=== PATIENT | female | born 1995 | race Caucasian/White ===

== ENCOUNTER 2023-02-21 12:26 | Outpatient (CLI) | payer OTHER, SELFPAY ==
[2023-02-21 13:25] LABS: Beta HCG Quantitative 8.32 mIU/ML
== END 2023-02-21 12:27 | disposition home or self-care (01) ==
LOC: ANHLAB 12:28
PROVIDERS: Visit Provider Student in an Organized Health Care Education/Training Program
DX: O20.0 Threatened abortion (principal)
CPT/HCPCS: 36415; 84702

== ENCOUNTER 2023-02-23 09:53 | Outpatient (CLI) | payer OTHER, SELFPAY ==
[2023-02-23 10:37] LABS: Beta HCG Quantitative 2.64 mIU/ML
== END 2023-02-23 09:54 | disposition home or self-care (01) ==
LOC: ANHLAB 09:54
PROVIDERS: Visit Provider Student in an Organized Health Care Education/Training Program
DX: O20.0 Threatened abortion (principal); Z3A.00 Weeks of gestation of pregnancy not specified
CPT/HCPCS: 36415; 84702

== ENCOUNTER 2023-06-15 11:54 | Outpatient (CLI) | payer OTHER, SELFPAY ==
--- NOTE | ~2023-06-15 | US_ITS ---
EXAMINATION: US OB <=14 wk fetus w TV DATE: 06/15/2023 13:02 INDICATION: Threatened . TECHNIQUE: Real-time transabdominal and transvaginal pelvic ultrasound was performed. COMPARISON: Ultrasound 06/05/2023 FINDINGS: TRANSABDOMINAL ULTRASOUND: The uterus measures 11.0 x 6.7 x 3.9 cm. TRANSVAGINAL ULTRASOUND: There is no visible intrauterine gestational sac. The endometrial complex me asures 12 mm in thickness without internal vascular flow on color Doppler. The ovaries are not visual ized. There is no free fluid in the pelvis. IMPRESSION: 1. Thickened endometrial complex suspicious for retained products of conception. Reviewed, dictated and finalized at location A. IMPRESSION: 1. Thickened endometrial complex suspicious for retained products of conceptio n.
== END 2023-06-15 11:55 | disposition home or self-care (01) ==
PROVIDERS: Visit Provider Obstetrics & Gynecology
DX: O20.0 Threatened abortion (principal); R93.89 Abnormal findings on diagnostic imaging of other specified body structures; Z3A.00 Weeks of gestation of pregnancy not specified
CPT/HCPCS: 76801; 76817

== ENCOUNTER → 2023-09-01 12:53 | Outpatient (CLI) | payer OTHER, SELFPAY ==
--- NOTE | ~2023-09-01 | US_ITS ---
EXAMINATION: US OB <=14 wk fetus w TV DATE: 09/01/2023 13:16 INDICATION: Threatened TECHNIQUE: Real-time pelvic ultrasound utilizing both a transvaginal and transabdominal probe was pe rformed. The interpreting radiologist was not present for the study. COMPARISON: None. FINDINGS: The uterus measures 8.0 x 5.7 x 4.2 cm. Endometrial complex measures 10 mm in thickness. There is no evident intrauterine gestational sac. There is a small amount of anechoic fluid within the endocervic al canal and the caudal-most aspect of the endometrial canal of the lower uterine segment. The right ovary measures 1.9 x 1.6 x 1.5 cm. The left ovary measures 2.1 x 1.6 x 2.0 cm. 1.6 cm anech oic likely corpus luteum cyst within the left ovary. There is no free fluid in the pelvis. IMPRESSION: 1. No evident intrauterine gestational sac. Differential would include early, failed or ectopic pregn estrada although no masses suspicious for the latter are identified. Recommend follow-up with serial bet a-hCG levels. Reviewed, dictated and finalized at location A. IMPRESSION: 1. No evident intrauterine gestational sac. Differential would include early, f nancie or ectopic although no masses suspicious for the latter are miladis ntified. Recommend follow-up with serial beta-hCG levels.
== END ==
PROVIDERS: PCP Student in an Organized Health Care Education/Training Program; Visit Provider Student in an Organized Health Care Education/Training Program
DX: O20.0 Threatened abortion (principal); Z3A.00 Weeks of gestation of pregnancy not specified
CPT/HCPCS: 76801; 76817

== ENCOUNTER 2023-09-01 13:09 | Outpatient (CLI) | payer OTHER, SELFPAY ==
[2023-09-01 19:03] LABS: Beta HCG Quantitative 16.83 mIU/ML
[2023-09-05 13:22] LABS: Progesterone 1.1 ng/mL (***)
== END 2023-09-01 13:10 | disposition home or self-care (01) ==
LOC: ANHGOSHLAB 13:11
PROVIDERS: PCP Student in an Organized Health Care Education/Training Program; Visit Provider Obstetrics & Gynecology
DX: O20.0 Threatened abortion (principal); N94.89 Other specified conditions associated with female genital organs and menstrual cycle
CPT/HCPCS: 36415; 84144; 84702; 86747